=== PATIENT | female | born 1975 | race Caucasian/White ===

== ENCOUNTER 2024-05-02 15:12 | Emergency (ER) | payer MEDICAID, SELFPAY ==
[2024-05-02 15:14] VITALS: BP 162/106; PULSE 110; RESP 16; TEMP 36.8; O2SAT 95; BMI 27.4
[2024-05-02 15:18] VITALS: BP 162/106; PULSE 116; O2SAT 92
--- NOTE | 2024-05-02 15:34 | ED_ITS ---
Discharge Plan Disposition Patient Disposition: Home, Self-Care Condition: Good Prescriptions Prescriptions: New cephalexin 500 mg capsule 500 mg PO BID 7 Days Qty: 14 0RF Activity Restrictions/Add. Instructions Additional Instructions/Restrictions: You may shower normally but no swimming no scrubbing of the wound. Return to your PCP ER or other care provider for any persistent headache nausea vomiting or change in level of consciousness. Clinical Impressions Clinical Impression: Laceration Instructions Patient Instructions: DI for Laceration Repair, DI for Closed Head Injury Print Language Print Language: French Discharge ED Provider: Ger Garcia General Adult HPI <KYMBERLY Buchanan - Last Filed: 05/02/24 18:32> General Chief complaint: Wound/Laceration Stated complaint: AO 05/02/24 1445 Hit in head with board Time Seen by Provider: 05/02/24 15:28 Mode of Arrival: Ambulatory Source of Information: Patient Limitations: No Limitations Description of Symptoms (Recalled from ER Triage Doc. by RN): pt presents to ED with c/o laceration to top of head. 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 one of the wooden boards fell and hit the pt in the top of right side of head. History of Present Illness HPI narrative: Patient presents for evaluation of a scalp laceration. 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 She did not lose consciousness she was not knocked to the ground. She has no alteration in mental status she has no headache or neck pain is not on any blood thinners. She did however suffer a laceration in the area of the strike. Related Data Previous Rx's ?Medication ?Instructions ?Recorded cephalexin 500 mg capsule 500 mg PO BID 7 days #14 caps 05/02/24 Allergies Allergy/AdvReac Type Severity Reaction Status Date / Time No Known Allergies Allergy Verified 05/02/24 16:48 PFSH <KYMBERLY Buchanan - Last Filed: 05/02/24 18:32> [facility] Disclaimer: The information contained in this section may have been updated after the patient was seen, as this information can be updated by other users. Social History (Updated 05/02/24 @ 18:32 by KYMBERLY Buchanan) Smoking Status: Current every day smoker alcohol intake: never current occupational status: employed Travel in the last 8 weeks: Inside the [place] <KYMBERLY Buchanan - Last Filed: 05/02/24 18:32> ROS Obtained: Yes Systems reviewed as appropriate & no additional complaints except as documented Physical Exam <KYMBERLY Buchanan - Last Filed: 05/02/24 18:32> General General appearance: alert and in no apparent distress Neck Neck exam: Present normal inspection, full ROM and trachea midline; Absent lymphadenopathy Respiratory Respiratory exam: Present normal lung sounds bilaterally Cardiovascular Cardiovascular exam: Present regular rate Neurological Exam Neurological exam: Present alert, oriented X3, CN II-XII intact and normal gait; Absent motor sensory deficit Medical Decision Making <KYMBERLY Buchanan - Last Filed: 05/02/24 18:32> [facility]ito Inquiry Pt receiving controlled substance: No Vital Signs: 05/02/24 15:14 05/02/24 15:18 Temperature 98.2 F Temperature Source Oral Pulse Rate 116 H Pulse Rate [Left Radial] 110 H Respiratory Rate 16 Blood Pressure 162/106 H Blood Pressure [Right Arm] 162/106 H Blood Pressure Mean [Right Arm] 124 02 Sat by Pulse Oximetry 95 92 L Oxygen Delivery Method Room Air Room Air Orders (Tests/Meds): ED MEDICATIONS Discontinued Medications Generic Name Dose Route Start Last Admin Trade Name Tim PRN Reason Stop Dose Admin Acetaminophen 1,000 mg 05/02/24 17:49 Acetaminophen 500mg Tab PO 05/02/24 17:50 ONCE ONE Lidocaine/Epinephrine 10 ml 05/02/24 15:39 05/02/24 17:13 Lidocaine 1% W/Epi 1:100,000 20ml Vial SQ 05/02/24 15:40 1 ml ONCE ONE Administration Ondansetron HCl 4 mg 05/02/24 17:01 05/02/24 17:13 Ondansetron 4mg Odt SL 05/02/24 17:02 4 mg ONCE ONE Administration Tetanus/Reduced Diphtheria/Acell Pertussis 0.5 ml 05/02/24 15:41 05/02/24 16:17 Tet/Diphth/Pert-Adult 0.5ml Syringe IM 05/02/24 15:42 0.5 ml .ONCE ONE Administration ORDERS Category Date Time Status CT head/brain wo con Stat Cat Scan 05/02/24 17:01 Completed Medical Decision Narrative: In summary patient is a 48-year-old female who presents to the emergency department for evaluation of scalp laceration. Patient is hemodynamically stable upon arrival, afebrile with [place] Coma Score 15. Physical exam is remarkable for laceration on the right side of her scalp near the crown. There is no bony deformity there is no C-spine tenderness there is no painful range of motion and she has full range of motion no focal neurologic deficit and her Glascow coma score again is 15. Differential diagnosis includes simple laceration versus complex. Initial workup was considered however via the [place] head injury rules patient is ruled out for further workup. Initial interventions include Tdap. Upon repeat evaluation patient reported feeling woozy but Brend[place] Coma Score still [address] scan of the head without contrast was negative for any acute intracranial pathology via my informal read prior to radiology read. Given this wound was repaired with glue. Patient is appropriate for discharge with wound care instructions and strict return precautions. <Ger Garcia MD - Last Filed: 05/02/24 18:46> Vital Signs: 05/02/24 15:14 05/02/24 15:18 Temperature 98.2 F Temperature Source Oral Pulse Rate 116 H Pulse Rate [Left Radial] 110 H Respiratory Rate 16 Blood Pressure 162/106 H Blood Pressure [Right Arm] 162/106 H Blood Pressure Mean [Right Arm] 124 02 Sat by Pulse Oximetry 95 92 L Oxygen Delivery Method Room Air Room Air Orders (Tests/Meds): ED MEDICATIONS Discontinued Medications Generic Name Dose Route Start Last Admin Trade Name Tim PRN Reason Stop Dose Admin Acetaminophen 1,000 mg 05/02/24 17:49 Acetaminophen 500mg Tab PO 05/02/24 17:50 ONCE ONE Lidocaine/Epinephrine 10 ml 05/02/24 15:39 05/02/24 17:13 Lidocaine 1% W/Epi 1:100,000 20ml Vial SQ 05/02/24 15:40 1 ml ONCE ONE Administration Ondansetron HCl 4 mg 05/02/24 17:01 05/02/24 17:13 Ondansetron 4mg Odt SL 05/02/24 17:02 4 mg ONCE ONE Administration Tetanus/Reduced Diphtheria/Acell Pertussis 0.5 ml 05/02/24 15:41 05/02/24 16:17 Tet/Diphth/Pert-Adult 0.5ml Syringe IM 05/02/24 15:42 0.5 ml .ONCE ONE Administration ORDERS Category Date Time Status CT head/brain wo con Stat Cat Scan 05/02/24 17:01 Completed Medical Decision Narrative: In summary patient is a 48-year-old female who presents to the emergency department for evaluation of scalp laceration. Patient is hemodynamically stable upon arrival, afebrile with [place] Coma Score 15. Physical exam is remarkable for laceration on the right side of her scalp near the crown. There is no bony deformity there is no C-spine tenderness there is no painful range of motion and she has full range of motion no focal neurologic deficit and her Glascow coma score again is 15. Differential diagnosis includes simple laceration versus complex. Initial workup was considered however via the [place] head injury rules patient is ruled out for further workup. Initial interventions include Tdap. Upon repeat evaluation patient reported feeling woozy but [place] Coma Score still [address] scan of the head without contrast was negative for any acute intracranial pathology via my informal read prior to radiology read. Given this wound was repaired with glue. Patient is appropriate for discharge with wound care instructions and strict return precautions. I was consulted by the JUAN, and we discussed the complexity of the problems being addressed. I approved the treatment and management plan for this patient's care in the emergency department, thus performing a substantive portion of the medical decision making. Ger Garcia MD Procedures <KYMBERLY Buchanan - Last Filed: 05/02/24 18:32> Laceration Laceration 1: Site: scalp Size (cm): 3 Description: linear Local Anesthetic: lidocaine 1% and with epi Amount of anesthesia used (mL): 5 Pre-repair: wound explored, irrigated extensively and deep structures intact Skin layer closed with: Dermabond Critical Care <KYMBERLY Buchanan - Last Filed: 05/02/24 18:32> Critical Care Time Critical Care Time: No
[2024-05-02] MEDS: TET/DIPHTH/PERT-ADULT 0.5ML SYRINGE 0.5 ML IM (16:17)
--- NOTE | 2024-05-02 17:01 | CT_ITS ---
PROCEDURE INFORMATION: Exam: CT Head Without Contrast Exam date and time: 05/02/2024 5:42 PM Age: 48 years old Clinical indication: Injury or trauma; Fall; Blunt trauma (contusions or hematomas); Additional info: Head trauma TECHNIQUE: Imaging protocol: Computed tomography of the head without contrast. Radiation optimization: All CT scans at this facility use at least one of these dose optimization techniques: automated exposure control; mA and/or kV adjustment per patient size (includes targeted exams where dose is matched to clinical indication); or iterative reconstruction. COMPARISON: No relevant prior studies available. FINDINGS: Brain: Normal. No hemorrhage. Unremarkable white matter. No mass effect. Cerebral ventricles: No ventriculomegaly. Paranasal sinuses: Visualized sinuses are unremarkable. No fluid levels. Mastoid air cells: Visualized mastoid air cells are well aerated. Bones: Unremarkable. No acute fracture. Soft tissues: Unremarkable. IMPRESSION: No acute intracranial abnormality.
[2024-05-02] MEDS: ONDANSETRON 4MG ODT 4 MG SL (17:13)
[2024-05-02] MEDS: LIDOCAINE 1% W/EPI 1:100,000 20ML VIAL 10 ML SQ (17:13)
[2024-05-02 18:25] VITALS: BP 135/80; PULSE 80; RESP 18; TEMP 36.6; O2SAT 98
== END 2024-05-02 18:30 | disposition home or self-care (01) ==
PROVIDERS: Emergency Provider Emergency Medicine
DX: S01.01XA Laceration without foreign body of scalp, initial encounter (principal); W20.8XXA Other cause of strike by thrown, projected or falling object, initial encounter; Z23 Encounter for immunization
CPT/HCPCS: 12002; 70450; 90471; 90715; 99284; Q0162